=== PATIENT | female | born 1995 | race African-American/Black ===

== ENCOUNTER 2019-11-13 00:01 | Emergency (ER) | payer OTHER ==
[~2019-11-13] VITALS: Ht 157.5 cm; Wt 69.0 kg
[2019-11-13] MEDS ORDERED: ACETAMINOPHEN 500MG TABLET PO ONE (00:45)
[2019-11-13] MEDS ORDERED: BACITRACIN ZINC OINT UDPKT TOP ONE (00:45)
[2019-11-13] MEDS ORDERED: LIDOCAINE HCL 1% 20ML VIAL (Pyxis) INJ INFIL ONE (00:45)
[2019-11-13 02:41] VITALS: BP 121/79
[2019-11-13] MEDS ORDERED: TETANUS, DIPHTHERIA, PERTUSSIS VAC/PF 0.5ML (>7YR OLD) IM ONE (03:00)
== END 2019-11-13 03:01 | disposition home or self-care (01) ==
LOC: ER 00:01
DX: S01.01XA Laceration without foreign body of scalp, initial encounter (principal); R51 Headache; X99.8XXA Assault by other sharp object, initial encounter; Y93.89 Activity, other specified; Y92.89 Other specified places as the place of occurrence of the external cause; Z23 Encounter for immunization
CPT/HCPCS: 12002; 70450; 81025; 90471; 90715; 99284; J3490

== ENCOUNTER 2019-11-27 13:28 | Emergency (ER) | payer MEDICAID, OTHER ==
[~2019-11-27] VITALS: Ht 157.5 cm; Wt 65.0 kg
[2019-11-27 15:03] VITALS: BP 128/72
== END 2019-11-27 15:05 | disposition home or self-care (01) ==
LOC: ER 13:28
DX: Z48.02 Encounter for removal of sutures (principal)
CPT/HCPCS: 99281

== ENCOUNTER 2025-08-22 13:56 | Emergency (ER) | payer MEDICAID, OTHER ==
[~2025-08-22] VITALS: Ht 160 cm; Wt 60.0 kg
[2025-08-22 14:13] VITALS: O2SAT 99
[2025-08-22] MEDS ORDERED: LIDO-53 TP (16:25)
[2025-08-22] MEDS ORDERED: ACET-2708 MT (16:25)
[2025-08-22] MEDS ORDERED: LIDOCAINE 5% PATCH TOP SCH (16:30)
[2025-08-22] MEDS: KETOROLAC 30MG/ML VIAL IM ONE (16:30)
[2025-08-22 17:03] VITALS: BP 128/82; PULSE 99; RESP 16; TEMP 36.7; O2SAT 99
== END 2025-08-22 17:07 | disposition home or self-care (01) ==
LOC: ER 13:56
DX: M25.511 Pain in right shoulder (principal); F14.90 Cocaine use, unspecified, uncomplicated; Z98.890 Other specified postprocedural states
CPT/HCPCS: 99283; 81025; 73030; 96372; J1885